=== PATIENT | male | born 1980 | race Caucasian/White ===

== ENCOUNTER 2016-12-29 10:52 | Emergency (ER) | payer OTHER ==
[~2016-12-29] VITALS: Ht 175.3 cm; Wt 91.6 kg
[2016-12-29 10:54] VITALS: BP 143/92
== END 2016-12-29 11:28 | disposition home or self-care (01) ==
LOC: ED 10:52
DX: G89.29 Other chronic pain (principal); M25.561 Pain in right knee; R03.0 Elevated blood-pressure reading, without diagnosis of hypertension; Z88.0 Allergy status to penicillin

== ENCOUNTER 2017-09-16 18:00 | Emergency (ER) | payer OTHER ==
[~2017-09-16] VITALS: Ht 180.3 cm; Wt 100.5 kg
[2017-09-16 19:30] VITALS: BP 138/80
== END 2017-09-16 19:31 | disposition home or self-care (01) ==
LOC: ED 18:00
DX: J98.01 Acute bronchospasm (principal); R07.89 Other chest pain; F20.0 Paranoid schizophrenia; F17.210 Nicotine dependence, cigarettes, uncomplicated
CPT/HCPCS: 99406

== ENCOUNTER 2017-11-01 08:49 | Emergency (ER) | payer OTHER ==
[~2017-11-01] VITALS: Ht 180.3 cm; Wt 101.6 kg
[2017-11-01 08:54] VITALS: Ht 180.3 cm; Wt 101.6 kg
[2017-11-01 09:52] VITALS: BP 155/98
== END 2017-11-01 09:50 | disposition home or self-care (01) ==
LOC: ED 08:49
DX: R10.9 Unspecified abdominal pain (principal)